=== PATIENT | male | born 1990 | race Caucasian/White ===

== ENCOUNTER 2016-06-05 15:57 | Emergency (ER) | payer SELFPAY ==
[2016-06-05 16:02] VITALS: TEMP 98.8
--- NOTE | 2016-06-05 17:52 | EDPHY ---
H & P Stated Complaint: cough/fever x2-3 days - Personal History Current Tetanus/Diphtheria Vaccine: Yes Current Tetanus Diphtheria and Acellular Pertussis (TDAP): Yes - Medical/Surgical History Hx Asthma: No Hx Chronic Respiratory Disease: No Hx Diabetes: No Hx Cardiac Disease: No Hx Renal Disease: No Hx Cirrhosis: No Hx Alcoholism: No Hx HIV/AIDS: No Hx Splenectomy or Spleen Trauma: No Other PMH: pmh- kidney stones - Social History Smoking Status: Current every day smoker HPI/ROS: Chief complaint: Cold symptoms History of present illness: This is a 26-year-old male who presents to the emergency department for cold symptoms. Patient reports he has been sick for the last 2 days. He reports fevers, runny nose, nasal congestion, slight sore throat, nonproductive cough and body aches. Symptoms have been persistent. He did go to an urgent care yesterday and was told to take [id number] cold medication. He is concerned is symptoms persist. He states he is unable to get sleep at night. He is specifically requesting Singulair as he has used this in the past and is very helpful when he has these type of symptoms. (Sunil Montoya) - Physical Exam Exam: General Appearance: Alert and no distress. Eyes: Pupils equal and round no injection. ENT: Tympanic membranes, external auditory canals, external ears and surrounding soft tissue including over the mastoids are unremarkable. Nasopharynx is injected. There is clear rhinorrhea. Oropharynx is injected. There is no edema. There is no exudate. There is no asymmetry. The uvula is midline. No elevation of the tongue. There is no hoarseness, no drooling, no trismus, no stridor. Respiratory: Chest is non tender, lungs are clear to auscultation. Cardiac: regular rate and rhythm Musculoskeletal: Neck is supple and non tender. Extremities have full range of motion and are non tender. Skin: No rashes or lesions. Neurologic: Alert and oriented x4. No meningismus. (Sunil Montoya) Constitutional: Initial Vital Signs Temperature (C) 37.1 C 06/05/16 15:59 Heart Rate 94 06/05/16 15:59 Respiratory Rate 14 06/05/16 15:59 Blood Pressure 110/77 06/05/16 15:59 O2 Sat (%) 100 06/05/16 15:59 O2 Delivery Mode Room Air Allergies/Adverse Reactions: No Known Allergies Allergy (Unverified 06/05/16 15:59) Home Medications: Medication Instructions Recorded Guaifenesin/Codeine Phosphate 10 ml PO Q6 PRN #0 liquid 06/05/16 [Codeine-Guaifen 10-100 mg/5 ml] Montelukast Sodium [Singulair 10 10 mg PO DAILY #10 tab 06/05/16 mg (*)] Medical Decision Making ED Course/Re-evaluation: Patient seen under the supervision of Dr. Kaiden Gooden. Patient presents to the emergency department for evaluation of cold symptoms. Patient is nontoxic. Afebrile and vital signs are stable. He is appropriate for outpatient management. He will be discharged home. Home care is discussed including hydration and rest. He is requesting a course of Singulair as he has treated similar symptoms in the past with it and it is very effective for him. He is given a short course. I have also prescribed cough medication. He is asked to follow up with a primary care doctor for recheck, referral information is given. Strict return precautions are given. Patient voiced understanding and agreement with plan. (Sunil Montoya) I did not see this patient while he was in the emergency department. However his care was discussed with the PA while the patient was in the department. I agree with treatment plan and management (Kaiden Gooden) Departure - Departure Disposition: Home, Routine, Self-Care Clinical Impression: Viral syndrome Condition: Good Instructions: Viral Syndrome (ED) Additional Instructions: Follow-up with a primary care doctor next week for recheck If symptoms worsen or new symptoms develop return to the emergency department for recheck Referrals: NONE *PRIMARY CARE P,. [Primary Care Provider] - As per Instructions [facility] [Outside] - As per Instructions Prescriptions: Guaifenesin/Codeine Phosphate [Codeine-Guaifen 10-100 mg/5 ml] 10 ml PO Q6 PRN # 0 liquid PRN Reason: Cough, Severe Montelukast Sodium [Singulair 10 mg (*)] 10 mg PO DAILY #10 tab
[2016-06-05 18:02] VITALS: BP 110/69; PULSE 90; RESP 16; O2SAT 99
== END 2016-06-05 18:01 | disposition home or self-care (01) ==
DX: B34.9 Viral infection, unspecified (principal); F17.200 Nicotine dependence, unspecified, uncomplicated